=== PATIENT | male | born 1955 | race Asian ===

== ENCOUNTER → 2019-09-12 | Outpatient (CLI) | payer OTHER ==
[~2019-09-12] MED LIST: OMNIPAQUE 350 MG/ML, 100ML BOTTLE ONE
[2019-09-12 12:23] LABS: CREATININE 0.88 mg/dL (0.7-1.3)
== END | disposition home or self-care (01) ==
LOC: RAD 11:15
PROVIDERS: ATTEND Urology
DX: C61 Malignant neoplasm of prostate (principal); K57.30 Diverticulosis of large intestine without perforation or abscess without bleeding; N40.0 Benign prostatic hyperplasia without lower urinary tract symptoms; K40.20 Bilateral inguinal hernia, without obstruction or gangrene, not specified as recurrent; N43.3 Hydrocele, unspecified
CPT/HCPCS: 36415; 72193; 78306; 82565; A9503; Q9967

== ENCOUNTER 2019-11-11 12:37 | Outpatient (CLI) | payer OTHER ==
[~2019-11-11 12:37] MED LIST changes: +AMLO10TA8 PO; +ASCO500T8 PO; +ASPI81TA45 PO; +HYDR-3246 PO; +METF750T42 PO; -OMNIPAQUE 350 MG/ML, 100ML BOTTLE ONE; +SIMV40TA20 PO
[2019-11-11] MEDS ORDERED: CYSTO CONRAY II 250 ML VIAL UR ONE (14:58)
== END 2019-11-11 23:59 | disposition home or self-care (01) ==
LOC: RAD 12:37
PROVIDERS: ATTEND Urology
DX: Z08 Encounter for follow-up examination after completed treatment for malignant neoplasm (principal); Z90.79 Acquired absence of other genital organ(s)
CPT/HCPCS: 51600; 74430; Q9958